=== PATIENT | female | born 1950 | race Two or more races ===

== ENCOUNTER 2019-05-02 13:10 | Emergency (ER) | payer OTHER ==
[~2019-05-02] VITALS: Ht 152.4 cm; Wt 72.6 kg
[2019-05-02] MEDS ORDERED: COZAAR100 MG (13:47)
[2019-05-02] MEDS ORDERED: ASPIR 8181 MG (13:47)
[2019-05-02] MEDS ORDERED: MEDI-MECLIZINE25 MG PO (15:02)
== END 2019-05-02 16:18 | disposition home or self-care (01) ==
LOC: ER 13:10
DX: S00.83XA Contusion of other part of head, initial encounter (principal); R42 Dizziness and giddiness; W18.09XA Striking against other object with subsequent fall, initial encounter; Y93.89 Activity, other specified; Y92.510 Bank as the place of occurrence of the external cause; Y99.8 Other external cause status